=== PATIENT | male | born 1975 | race Caucasian/White ===

== ENCOUNTER → 2016-12-19 | Emergency (ER) | payer OTHER ==
[~2016-12-19] MED LIST: KETOROLAC TROMETHAMINE 60 MG/2 ML VIAL ONE
[2016-12-19 18:45] VITALS: BP 115/71; PULSE 84; TEMP 98.5; BMI 22.4
== END | disposition left against medical advice (07) ==
LOC: JERFT 18:37
DX: Z53.21 Procedure and treatment not carried out due to patient leaving prior to being seen by health care provider (principal)
CPT/HCPCS: 99281-25

== ENCOUNTER 2017-04-02 14:55 | Emergency (ER) | payer OTHER ==
--- NOTE | 2017-04-02 15:06 | PDOC ---
Rapid Medical Evaluation Time Seen by Provider: 04/02/17 15:03 Medical Evaluation: Allergies Allergy/AdvReac Type Severity Reaction Status Date / Time No Known Allergies Allergy Verified 04/02/17 15:03 04/02/17 15:03 Pt presents to the ED: rectal pain, hx hemorroids Pt on brief exam: noted nonthrombosed 2cm hemorroid, no s/s of abscess Pt ordered for: none Pt to proceed to the Emergency Dept Discharge Disposition - Diagnosis Acute hemorrhoid - Referrals - Patient Instructions - Post Discharge Activity
[2017-04-02 15:07] VITALS: BP 135/92; PULSE 70; TEMP 97.8; BMI 22.4
--- NOTE | 2017-04-02 15:49 | PDOC ---
History of Present Illness - General Chief Complaint: Hemorrhoids Stated Complaint: HEMMORHOIDS Time Seen by Provider: 04/02/17 15:03 Past History - Past Medical History Allergies/Adverse Reactions: Allergies Allergy/AdvReac Type Severity Reaction Status Date / Time No Known Allergies Allergy Verified 04/02/17 15:03 Home Medications: Ambulatory Orders Docusate Sodium [Colace -] 100 mg PO BID #14 capsule 04/02/17 Lisinopril [Prinivil] 20 mg PO DAILY 04/02/17 Metformin HCl [Glucophage -] 500 mg PO BID 04/02/17 Asthma: Yes COPD: No Diabetes: Yes HTN: Yes - Suicide/Smoking/Psychosocial Hx Smoking History: Never smoked Have you smoked in the past 12 months: No Information on smoking cessation initiated: No Hx Alcohol Use: No Drug/Substance Use Hx: No Substance Use Type: None *Physical Exam - Vital Signs Last Vital Signs Temp Pulse Resp BP Pulse Ox 97.8 F 70 18 135/92 100 04/02/17 15:04 04/02/17 15:04 04/02/17 15:04 04/02/17 15:04 04/02/17 15:04 *DC/Admit/Observation/Transfer Diagnosis at time of Disposition: Acute hemorrhoid, Thrombosed external hemorrhoids - Discharge Dispostion Disposition: HOME Condition at time of disposition: Good Admit: No - Prescriptions Prescriptions: Docusate Sodium [Colace -] 100 mg PO BID #14 capsule - Referrals Referrals: STAFF,NOT ON [Primary Care Provider] - Jerod Becerril MD [Staff Physician] - - Patient Instructions Printed Discharge Instructions: DI for Hemorrhoids Additional Instructions: You had a thrombosed hemorrhoid. This is a blood clot. The clot was removed today. You may take Tylenol 650mg every 4 hours as needed for pain not to exceed 4,000mg a day. Please use warm water baths (sitz baths) at least two times a day to promote healing. Make sure that you clean the area well after using the restroom. You may use the preparation H cream twice a day to help with your symptoms as well. Please take colace twice a day to help soften your stool. If your symptoms do not resolve in the next 5-7 days, please follow up with Dr. Becerril. Return to the ED if you have worsening pain, fevers, chills, difficulty using the bathroom , increased pain, or any changes in your symptoms - Post Discharge Activity
== END 2017-04-02 17:18 | disposition home or self-care (01) ==
LOC: JERFT 14:55
DX: K64.5 Perianal venous thrombosis (principal); J44.9 Chronic obstructive pulmonary disease, unspecified; I10 Essential (primary) hypertension; E11.9 Type 2 diabetes mellitus without complications; Z79.84 Long term (current) use of oral hypoglycemic drugs
CPT/HCPCS: 99281-25

== ENCOUNTER 2017-09-25 20:32 | Emergency (ER) | payer OTHER ==
--- NOTE | 2017-09-25 20:44 | PDOC ---
Rapid Medical Evaluation Time Seen by Provider: 09/25/17 20:35 Medical Evaluation: Allergies Allergy/AdvReac Type Severity Reaction Status Date / Time No Known Allergies Allergy Verified 04/02/17 15:03 09/25/17 20:42 Pt. presents with three days of neck pain, b/l shoulder pain. States he woke up with the pain. Denies trauma, fall, heavy lifting. States that the neck pain is now causing a headache Exam: AAOx3, breathing easily. Afebrile. Pain with ROM of neck. Orders: Nothing Pt. to proceed to ED for further evaluation Discharge Disposition - Diagnosis Neck pain - Referrals - Patient Instructions - Post Discharge Activity
[2017-09-25 20:46] VITALS: BP 109/74; PULSE 80; TEMP 98.7; BMI 23.0
[2017-09-25] MEDS ORDERED: KETOROLAC TROMETHAMINE 60 MG/2 ML VIAL IM ONE (23:06)
[2017-09-25] MEDS ORDERED: diazePAM CARPU-JECT 10 MG/2 ML DISP.SYRIN IM ONE (23:06)
--- NOTE | 2017-09-25 23:08 | PDOC ---
History of Present Illness - General History Source: Patient, Significant Other, Old Records Exam Limitations: No Limitations - History of Present Illness Initial Comments: 09/25/17 23:10 The patient is a 42 year old male, accompanied by significant other, with a past medical history of hemorrhoids who presents to the emergency department with neck and bilateral shoulder pain for 4-5 days. The patient states that over the weekend he was intoxicated, tripped, and land on his back and the right side of his body. He reports that his pain is worse in the right shoulder than the left. He reports that he took 2 600 mg ibuprofen with no relief of symptoms. He denies any other symptoms at this time. <Royce Vazquez - Last Filed: 09/25/17 23:10> - General History Source: Patient <Keven Almodovar - Last Filed: 09/26/17 19:24> - General Chief Complaint: Pain Stated Complaint: PAIN Time Seen by Provider: 09/25/17 20:35 Past History <Royce Vazquez - Last Filed: 09/25/17 23:10> - Past Medical History Asthma: Yes COPD: No Diabetes: Yes HTN: Yes - Suicide/Smoking/Psychosocial Hx Smoking History: Never smoked Have you smoked in the past 12 months: No Information on smoking cessation initiated: No Hx Alcohol Use: No Drug/Substance Use Hx: No Substance Use Type: None <Keven Almodovar - Last Filed: 09/26/17 19:24> - Past Medical History Allergies/Adverse Reactions: Allergies Allergy/AdvReac Type Severity Reaction Status Date / Time No Known Allergies Allergy Verified 04/02/17 15:03 Home Medications: Ambulatory Orders Docusate Sodium [Colace -] 100 mg PO BID #14 capsule 04/02/17 Lisinopril [Prinivil] 20 mg PO DAILY 04/02/17 metFORMIN HCL [Glucophage -] 500 mg PO BID 04/02/17 Amox-Tr/K Cl [Augmentin 500Mg Tablet] 1 tab PO BID #14 tablet 09/26/17 Ibuprofen [Motrin -] 600 mg PO TID #30 tablet 09/26/17 Methocarbamol [Robaxin -] 500 mg PO TID #30 tablet 09/26/17 Oxycodone HCl/Acetaminophen [Percocet 5-325 mg Tablet] 1 - 2 tab PO Q6H #20 tablet MDD 4 09/26/17 Review of Systems - Review of Systems Able to Perform ROS?: Yes Comments:: 09/25/17 23:11 CONSTITUTIONAL: Absent: fever, no chills, no fatigue EYES: Absent: visual changes ENT: Absent: ear pain, no sore throat CARDIOVASCULAR: Absent: chest pain, no palpitations RESPIRATORY: Absent: cough, no SOB GI: Absent: abdominal pain, no nausea, no vomiting, no constipation, no diarrhea GENITOURINARY: Absent: dysuria, no frequency, no hematuria MUSCULOSKELETAL: (+) Neck pain and shoulder pain (R>L) SKIN: Absent: rash <Royce Vazquez - Last Filed: 09/25/17 23:10> *Physical Exam - Vital Signs Last Vital Signs Temp Pulse Resp BP Pulse Ox 98.7 F 80 17 109/74 100 09/25/17 20:43 09/25/17 20:43 09/25/17 20:43 09/25/17 20:43 09/25/17 20:43 - Physical Exam Comments: 09/25/17 23:11 GENERAL: Well-appearing, well-nourished. No apparent distress. HEENT: Normocephalic, atraumatic. PERRL, EOM intact. CARDIOVASCULAR: Normal S1, S2. Regular rate and rhythm. PULMONARY: Clear to auscultation bilaterally. ABDOMEN: Soft, non-distended, non-tender. EXTREMITIES: (+)Moderate to severe cervical muscle spasm decreased ROM to shoulder and neck, no gross bony deformities. SKIN: Warm, dry. No rash NEUROLOGICAL: No focal neurological deficits. <Royce Vazquez - Last Filed: 09/25/17 23:10> - Vital Signs Last Vital Signs Temp Pulse Resp BP Pulse Ox 98.7 F 80 17 109/74 100 09/25/17 20:43 09/25/17 20:43 09/25/17 20:43 09/25/17 20:43 09/25/17 20:43 <Keven Almodovar - Last Filed: 09/26/17 19:24> Medical Decision Making - Medical Decision Making 09/26/17 19:24 scribe noDr. Almodovar: The scribe's documentation has been prepared under my direction and personally reviewed by me in its entirery. I confirm that the note above accurately reflects all work, treatment, procedures, and medical decision making performed by me <Keven Almodovar - Last Filed: 09/26/17 19:24> *DC/Admit/Observation/Transfer - Attestations Scribe Attestion: 09/25/17 23:11 Documentation prepared by Royce Vazquez, acting as medical biller coder for Keven Almodovar DO. <Royce Vazquez - Last Filed: 09/25/17 23:10> - Discharge Dispostion Decision to Admit order: No <Keven Almodovar - Last Filed: 09/26/17 19:24> Diagnosis at time of Disposition: Neck pain, Sinusitis, Neck muscle spasm - Discharge Dispostion Disposition: HOME Condition at time of disposition: Stable - Prescriptions Prescriptions: Amox-Tr/K Cl [Augmentin 500Mg Tablet] 1 tab PO BID #14 tablet Ibuprofen [Motrin -] 600 mg PO TID #30 tablet Methocarbamol [Robaxin -] 500 mg PO TID #30 tablet Oxycodone HCl/Acetaminophen [Percocet 5-325 mg Tablet] 1 - 2 tab PO Q6H #20 tablet MDD 4 - Patient Instructions Printed Discharge Instructions: DI for Sinusitis, DI for Torticollis
[2017-09-25] MEDS ORDERED: KETOROLAC TROMETHAMINE 60 MG/2 ML VIAL ONE (23:18)
[2017-09-25] MEDS ORDERED: diazePAM 5 MG TABLET ONE (23:18)
[2017-09-26] MEDS ORDERED: AMOX TR/POT CLAV 500MG/125MG TABLETS (FP) PO ONE (01:46)
[2017-09-26] MEDS ORDERED: AMOX TR/POT CLAV 500MG/125MG TABLETS (FP) ONE (01:51)
[2017-09-26] MEDS ORDERED: METHOCARBAMOL 500 MG TABLET PO ONE (01:53)
[2017-09-26] MEDS ORDERED: METHOCARBAMOL 500 MG TABLET ONE (01:53)
== END 2017-09-26 01:57 | disposition home or self-care (01) ==
LOC: JER 20:32
PROC: 3E0233Z Introduction of Anti-inflammatory into Muscle, Percutaneous Approach (ICD-10-PCS; principal; 2017-09-25)
PROC: 3E023NZ Introduction of Analgesics, Hypnotics, Sedatives into Muscle, Percutaneous Approach (ICD-10-PCS; 2017-09-25)
DX: M62.838 Other muscle spasm (principal); J01.90 Acute sinusitis, unspecified; I10 Essential (primary) hypertension; E11.9 Type 2 diabetes mellitus without complications; Z79.84 Long term (current) use of oral hypoglycemic drugs; J45.909 Unspecified asthma, uncomplicated
CPT/HCPCS: 70450-TC; 72125-TC; 99282-25

== ENCOUNTER 2018-05-31 18:50 | Emergency (ER) | payer OTHER ==
[2018-05-31 18:59] VITALS: BMI 23.0
--- NOTE | 2018-05-31 21:31 | PDOC ---
History of Present Illness <Shelby Felder - Last Filed: 05/31/18 23:21> - General History Source: Patient Exam Limitations: Other (Poor historian, limited understanding of health conditions.) - History of Present Illness Initial Comments: Pt is a 43 yo M, with PMH of HTN, DM, club foot (corrected surgically) and chronic back pain, who is presenting with complaints of overall body fatigue, " L ear clogged," frontal head pressure, and light-headedness when standing from seated position x2 weeks. Pt states the symptoms have been constant over the last 2 weeks, but came to the ER today because he was worried "he has anemia and that is making him tired". The pt has a history of hemorrhoids, and notices mild spotting on the paper when he wipes after straining for bowel movements "every once in a while". Pt has no history of anemia and saw his PCP about 4 months ago with normal work-up. Pt has "seasonal allergies," but does not take any anti-histamines or decongestants regularly. Pt denies any recent fevers/ chills, ear pain or discharge, vision changes, syncope, chest pain, palpitations , SOB, nausea/vomiting, abdominal pain, urinary symptoms, diarrhea/constipation , or leg swelling. Social: Pt denies any cigarette, alcohol, or drug use. Pt denies any recent travel or sick contacts. Surgical: club foot repair. Family: no relevant history. 06/01/18 06:08 <Jennifer Henry - Last Filed: 06/01/18 06:18> - General Chief Complaint: Headache Stated Complaint: NAUSEA, HEADACHE, DIZZINESS Time Seen by Provider: 05/31/18 21:30 Past History <Shelby Felder - Last Filed: 05/31/18 23:21> - Past Medical History Asthma: Yes COPD: No Diabetes: Yes HTN: Yes - Suicide/Smoking/Psychosocial Hx Smoking History: Never smoked Have you smoked in the past 12 months: No Hx Alcohol Use: No Drug/Substance Use Hx: No Substance Use Type: None <Jennifer Henry - Last Filed: 06/01/18 06:18> - Past Medical History Allergies/Adverse Reactions: Allergies Allergy/AdvReac Type Severity Reaction Status Date / Time No Known Allergies Allergy Verified 05/31/18 18:59 Home Medications: Ambulatory Orders Docusate Sodium [Colace -] 100 mg PO BID #14 capsule 04/02/17 Lisinopril [Prinivil] 20 mg PO DAILY 04/02/17 metFORMIN HCL [Glucophage -] 500 mg PO BID 04/02/17 Amox-Tr/K Cl [Augmentin 500Mg Tablet] 1 tab PO BID #14 tablet 09/26/17 Ibuprofen [Motrin -] 600 mg PO TID #30 tablet 09/26/17 Methocarbamol [Robaxin -] 500 mg PO TID #30 tablet 09/26/17 Oxycodone HCl/Acetaminophen [Percocet 5-325 mg Tablet] 1 - 2 tab PO Q6H #20 tablet MDD 4 09/26/17 Review of Systems - Review of Systems Able to Perform ROS?: Yes Is the patient limited Hebrew proficient: No Constitutional: Yes: Loss of Appetite, Malaise, Weight Stable. No: Chills, Diaphoresis, Fever, Weakness HEENTM: Yes: See HPI, Other ("pressure in ear and face"). No: Recent change in vision, Nose Congestion, Nose Bleeding, Hearing Loss, Throat Pain, Throat Swelling, Difficulty Swallowing Respiratory: No: Cough, Shortness of Breath Cardiac (ROS): No: Chest Pain, Edema, Irregular Heart Rate, Lightheadedness, Palpitations, Syncope, Chest Tightness ABD/GI: Yes: Poor Appetite, Rectal Bleeding (occasional with hemorrhoids "spotting on paper"). No: Constipated, Diarrhea, Nausea, Poor Fluid Intake, Vomiting : No: Burning, Dysuria, Flank Pain, Hematuria, Pain, Urgency Musculoskeletal: No: Back Pain, Joint Pain, Muscle Weakness Integumentary: No: Rash Neurological: No: Headache, Numbness, Paresthesia, Weakness, Unsteady Gait, Ataxia, Dizziness Psychiatric: No: Sleep Pattern Change, Change in Appetite Endocrine: No: Increased Urine, Change in Weight Hematologic/Lymphatic: No: Anemia, Blood Clots, Easy Bleeding, Easy Bruising All Other Systems: Reviewed and Negative <Jennifer Henry - Last Filed: 06/01/18 06:18> *Physical Exam - Vital Signs Last Vital Signs Temp Pulse Resp BP Pulse Ox 98.1 F 87 18 117/77 99 05/31/18 18:56 05/31/18 18:56 05/31/18 18:56 05/31/18 18:56 05/31/18 18:56 <Shelby Felder - Last Filed: 05/31/18 23:21> - Vital Signs Last Vital Signs Temp Pulse Resp BP Pulse Ox 98.1 F 87 18 117/77 99 05/31/18 18:56 05/31/18 18:56 05/31/18 18:56 05/31/18 18:56 05/31/18 18:56 - Physical Exam Comments: Vitals stable, pt afebrile. Pt in NAD, normal body habitus. PE showed pt alert and oriented. chainsaw mechanic generally intact, muscular strength and sensation intact. Eyes PERRLA, EOMI. Oropharynx without erythema or exudates, no LAD b/l. Boggy nasal turbinates b/l, no facial tenderness to palpation, hearing intact. TMs show clear fluid behind the TM, but no erythema nor bulging. Clear heart sounds , S1/S2, no JVD, b/l pedal edema, or heart murmur. Clear lung sounds, no respiratory distress, wheezes, crackles, or accessory muscle use. No abdominal or CVA tenderness to palpation, no rebound, no guarding. Abdomen soft, non- distended, and with normoactive bowel sounds. Skin without jaundice or rash. 06/01/18 06:17 <Jennifer Henry - Last Filed: 06/01/18 06:18> Moderate Sedation - Procedure Monitoring Vital Signs: Procedure Monitoring Vital Signs Temperature 98.1 F 05/31/18 18:56 Pulse Rate 87 05/31/18 18:56 Respiratory Rate 18 05/31/18 18:56 Blood Pressure 117/77 05/31/18 18:56 O2 Sat by Pulse Oximetry (%) 99 05/31/18 18:56 <Shelby Felder - Last Filed: 05/31/18 23:21> - Procedure Monitoring Vital Signs: Procedure Monitoring Vital Signs Temperature 98.1 F 05/31/18 18:56 Pulse Rate 87 05/31/18 18:56 Respiratory Rate 18 05/31/18 18:56 Blood Pressure 117/77 05/31/18 18:56 O2 Sat by Pulse Oximetry (%) 99 05/31/18 18:56 <Jennifer Henry - Last Filed: 06/01/18 06:18> ED Treatment Course - LABORATORY CBC & Chemistry Diagram: 05/31/18 22:11 05/31/18 22:11 - ADDITIONAL ORDERS Additional order review: Laboratory Results 05/31/18 22:11 Sodium 137 Potassium 4.4 Chloride 102 Carbon Dioxide 31 Anion Gap 4 L BUN 16 Creatinine 1.4 H Creat Clearance w eGFR 54.80 Random Glucose 98 Calcium 8.9 Total Bilirubin 0.3 AST 15 ALT 24 Alkaline Phosphatase 89 Total Protein 7.3 Albumin 3.9 05/31/18 22:11 RBC 4.62 MCV 85.4 MCHC 35.2 RDW 13.0 MPV 7.2 L Neutrophils % 47.5 Lymphocytes % 37.0 Monocytes % 7.7 Eosinophils % 6.6 H Basophils % 1.2 - Medications Given in the ED: ED Medications Discontinued Medications Generic Name Dose Route Start Last Admin Trade Name Freq PRN Reason Stop Dose Admin Diphenhydramine HCl 25 mg 05/31/18 21:57 05/31/18 23:15 Benadryl - PO 05/31/18 21:58 25 mg ONCE ONE Administration <Shelby Felder - Last Filed: 05/31/18 23:21> - LABORATORY CBC & Chemistry Diagram: 05/31/18 22:11 05/31/18 22:11 <Jennifer Henry - Last Filed: 06/01/18 06:18> Medical Decision Making - Medical Decision Making Pt was seen at bedside, also will be seen by attending Dr. Felder. Pt presenting with complaints of overall body fatigue, "L ear clogged," frontal head pressure , and light-headedness when standing from seated position x2 weeks. Pt states the symptoms have been constant over the last 2 weeks, but came to the ER today because he was worried "he has anemia and that is making him tired". The pt has a history of hemorrhoids, and notices mild spotting on the paper when he wipes after straining for bowel movements "every once in a while". Pt has no history of anemia and saw his PCP about 4 months ago with normal work-up. Pt has "seasonal allergies," but does not take any anti-histamines or decongestants regularly. Pt denies any recent fevers/chills, ear pain or discharge, vision changes, syncope, chest pain, palpitations, SOB, nausea/vomiting, abdominal pain , urinary symptoms, diarrhea/constipation, or leg swelling. Vitals stable, pt afebrile. Pt in NAD, normal body habitus. PE showed pt alert and oriented. chainsaw mechanic generally intact, muscular strength and sensation intact. Eyes PERRLA, EOMI. Oropharynx without erythema or exudates, no LAD b/l. Boggy nasal turbinates b/l, no facial tenderness to palpation, hearing intact. TMs show clear fluid behind the TM, but no erythema nor bulging. Clear heart sounds , S1/S2, no JVD, b/l pedal edema, or heart murmur. Clear lung sounds, no respiratory distress, wheezes, crackles, or accessory muscle use. No abdominal or CVA tenderness to palpation, no rebound, no guarding. Abdomen soft, non- distended, and with normoactive bowel sounds. Skin without jaundice or rash. Considering congestion 2/2 allergies or viral URI. Pt has no facial tenderness to palpation to suggest sinusitis. Will obtain basic work-up to r/o anemia, electrolyte imbalances. Fatigue could also be 2/2 to psychosocial issues, anxiety, depression. Ordered work-up including CBC and CMP. Provided 25 mg PO benadryl and flonase for improvement of congestion. Will continue to reassess pt and monitor for symptomatic improvement. 05/31/18 22:22 CBC WNL, showed eosinophilic predominance which is consistent with allergic symptoms. 05/31/18 22:30 CMP: BUN/Cr 16/1.4, no prior for comparison. Pt can tolerate PO fluids. Pt can be discharged to home with follow-up. Pt advised to follow-up with PCP in 1-2 days. Pt advised to take benadryl or OTC decongestant nasal spray to reduce congestion, likely allergic in nature. Strict return precautions provided with pt understanding. 06/01/18 05:24 06/01/18 06:10 <Jennifer Henry - Last Filed: 06/01/18 06:18> *DC/Admit/Observation/Transfer - Discharge Dispostion Decision to Admit order: No <Shelby Felder - Last Filed: 05/31/18 23:21> - Discharge Dispostion Decision to Admit order: No <Jennifer Henry - Last Filed: 06/01/18 06:18> Diagnosis at time of Disposition: Allergic sinusitis - Discharge Dispostion Disposition: HOME Condition at time of disposition: Stable - Referrals Referrals: ON STAFF,NOT [Primary Care Provider] - Seamus Scruggs [Non Staff, Medical] - - Patient Instructions Printed Discharge Instructions: Allergic Rhinitis Additional Instructions: You were seen in the ER today for fatigue and ear pressure. The results of your labs today were normal. Please follow-up with your primary care doctor within 1- 2 days to discuss your visit and make sure your symptoms have improved. Please return to the ER if you have any worsening pain, development of fevers or chills , loss of consciousness, inability to tolerate food or fluids, or any other concerns. - Post Discharge Activity
--- NOTE | 2018-05-31 21:37 | PDOC ---
Attending Attestation - HPI HPI: 05/31/18 22:35 [id number] without any significant medical history who presents to the ED with lightheadedness when standing up too fast and associated ear congestion. - Physicial Exam PE: 05/31/18 22:36 GENERAL: Awake, alert, and fully oriented, in no acute distress HEAD: No signs of trauma EYES: PERRLA, EOMI, sclera anicteric, conjunctiva clear ENT: Auricles normal inspection, hearing grossly normal, nares patent, oropharynx clear without exudates. Moist mucosa NECK: Normal ROM, supple, no lymphadenopathy, JVD, or masses LUNGS: Breath sounds equal, clear to auscultation bilaterally. No wheezes, and no crackles HEART: Regular rate and rhythm, normal S1 and S2, no murmurs, rubs or gallops ABDOMEN: Soft, nontender, normoactive bowel sounds. No guarding, no rebound. No masses EXTREMITIES: Normal range of motion, no edema. No clubbing or cyanosis. No cords, erythema, or tenderness NEUROLOGICAL: Cranial nerves II through XII grossly intact. Normal speech SKIN: Warm, Dry, normal turgor, no rashes or lesions noted. <Rosalie Marcos - Last Filed: 05/31/18 22:35> - Resident Resident Name: Jennifer Henry - ED Attending Attestation I have performed the following: I have examined & evaluated the patient, The case was reviewed & discussed with the resident, I agree w/resident's findings & plan - Medical Decision Making 05/31/18 22:58 Pt is anxious and he fears that he is anemic. He comes with multiple complaints. He states that he is unemployed and he has not been eating well or sleeping well, he has a hx of hemorrhoids and he has had headaches. He wants to make sure he is healthy. Pt has no specific complaints at this time. Exam is normal. Pt has normal CBC. If chem is normal, pt will go home with OTC meds for sinus allergy and ENT follow up as needed. 05/31/18 23:23 Labs normal and pt is stable for discharge <Shelby Felder - Last Filed: 05/31/18 23:23> Attestations - Attestations 05/31/18 22:37 Documentation prepared by Rosalie Marcos, acting as medical office manager for Shelby Felder MD. <Rosalie Marcos - Last Filed: 05/31/18 22:35>
[2018-05-31] MEDS ORDERED: diphenhydrAMINE HCL 25 MG CAPSULE (FP) PO ONE ×2 (21:57→23:11)
[2018-05-31] MEDS ORDERED: FLUTICASONE PROP 0.05% 16 GM NASAL SPRAY NS ONE (21:58)
[2018-05-31 22:21] LABS: BASO % 1.2 % (0-2.0); EOS % 6.6 % (0-4.5); HEMATOCRIT 39.5 % (35.4-49); HEMOGLOBIN 13.9 GM/dL (11.7-16.9); MCHC 35.2 g/dl (32.0-35.9); MEAN CELL VOLUME 85.4 fl (80-96); MEAN PLT VOLUME 7.2 fl (7.5-11.1); MONO % 7.7 % (3.8-10.2); NEUT % 47.5 % (42.8-82.8); PLATELET COUNT 258 K/MM3 (134-434); RBC 4.62 M/mm3 (4.00-5.60); WHITE BLOOD COUNT 5.9 K/mm3 (4.0-10.0)
[2018-05-31 23:18] LABS: ALBUMIN 3.9 g/dl (3.4-5.0); ALK PHOS 89 U/L (45-117); ANION GAP 4 MMOL/L (8-16); BILIRUBIN,TOTAL 0.3 mg/dL (0.2-1); BLOOD UREA NITROGEN 16 mg/dL (7-18); CALCIUM 8.9 mg/dL (8.5-10.1); CHLORIDE 102 mmol/L (98-107); CO2 31 mmol/L (21-32); CREATININE 1.4 mg/dL (0.55-1.3); GLUCOSE,RANDOM 98 mg/dL (74-106); POTASSIUM 4.4 mmol/L (3.5-5.1); SGOT/AST 15 U/L (15-37); SGPT/ALT 24 U/L (13-61); SODIUM 137 mmol/L (136-145); TOT PROT 7.3 g/dl (6.4-8.2)
[2018-05-31 23:34] VITALS: BP 110/76; PULSE 89; TEMP 98.5
== END 2018-05-31 23:34 | disposition home or self-care (01) ==
LOC: JER 18:50
DX: J30.89 Other allergic rhinitis (principal); I10 Essential (primary) hypertension; E11.9 Type 2 diabetes mellitus without complications; Z79.84 Long term (current) use of oral hypoglycemic drugs
CPT/HCPCS: 36415; 80053; 85025; 99281-25